=== PATIENT | male | born 2005 | race Caucasian/White ===

== ENCOUNTER 2025-03-15 09:57 | Outpatient (CLI) | payer OTHER, SELFPAY | END 2025-03-15 09:58 | disposition home or self-care (01) | PROVIDERS: PCP Family Medicine; Visit Provider Family Medicine | DX: Z13.1 Encounter for screening for diabetes mellitus (principal); Z13.6 Encounter for screening for cardiovascular disorders | CPT/HCPCS: 80061; 82947 ==

== ENCOUNTER 2025-07-04 10:57 | Outpatient (CLI) | payer OTHER, SELFPAY | END 2025-07-04 10:58 | disposition home or self-care (01) | LOC: NFLDREF 07-07 03:08 | PROVIDERS: PCP Family Medicine; Referring Provider Family Medicine; Visit Provider Family Medicine | DX: Z11.1 Encounter for screening for respiratory tuberculosis (principal) | CPT/HCPCS: 86480 ==